=== PATIENT | female | born 1995 | race Caucasian/White ===

== ENCOUNTER 2024-09-03 20:59 | Emergency (ER) | payer OTHER, SELFPAY ==
[2024-09-03] VITALS (7 sets, daily range): BP systolic 113–136; BP diastolic 80; PULSE 86–107; RESP 20; TEMP 36.9; O2SAT 98–100
--- NOTE | 2024-09-03 21:30 | W.ED.GENAD ---
Discharge Plan Discharge Details Chief Complaint: Allergic Clinical Impression: Allergic reaction ED Provider: Ana Robbins Home Meds and New Rx's Prescriptions: No Action cetirizine [24Hour Allergy] 10 mg tablet 10 mg PO DAILY fluticasone propionate [24 Hour Allergy Relief] 50 mcg/actuation spray,suspension 2 spray intranasal DAILY Rx Instructions: administer into each nostril Mirena 21 mcg/24hr (up to 8 yrs) 52 mg intrauterine device 1 device intrauterine ONCE Rx Instructions: as a single dose Discharge Instructions Instructions: Allergic Reaction ED Additional Instructions: You were seen in the emergency department today for evaluation after an allergic reaction, likely to a food. In our department you had a full physical examination performed, and received medications for treatment of the hives that you developed. At this time, it is safe for you to go home and continue to use Benadryl as needed for any ongoing itching or hives. If you develop shortness of breath, throat swelling, or any other symptoms concerning for anaphylaxis she should give yourself your EpiPen and return to the emergency department immediately. You need to contact your primary care provider to discuss repeat allergy testing and follow-up. Please follow-up with your primary care provider in the next few days to discuss this visit and any symptoms that change, worsen, or persist. Thank you for allowing us to be part of your care. HPI General Mode of arrival: ambulatory. Date/Time Provider Initiated Documentation: 09/03/24 21:01. Limitations to Documentation: no limitations. Information obtained by: patient, family and old records reviewed. HPI Narrative: This is a 28-year-old female patient with a history of anaphylactic reaction to peanuts, sesame seeds, and tree nuts, presenting for evaluation of allergic reaction. The patient was out to dinner, had a few bites of her meal and then noticed some itchiness of her tongue and flushing of her face. She felt quite shaky, states that she never developed any throat swelling, shortness of breath. She tried to make herself throw up as that has helped to minimize reactions in the past. She states that she took 50 mg of Benadryl orally, did not use her EpiPen, and presented to care concerned for development of worsening reaction. The patient reports that she has not needed to use her EpiPen in some time, and has not had to come to the hospital for an allergic reaction in at least 5 to 10 years. She reports that right now her shakiness is improving as is her facial flushing. She has not developed any hives but did have some itching of her scalp. She has no abdominal pain or nausea, denies shortness of breath, wheezing, changes in voice or throat swelling. Prior to this event she was in her normal state of health. Related Data Home Medications ?Medication ?Instructions ?Recorded ?Confirmed cetirizine 10 mg tablet (24Hour 10 mg PO DAILY 09/03/24 09/03/24 Allergy) fluticasone propionate 50 2 spray intranasal DAILY 09/03/24 09/03/24 mcg/actuation nasal spray,suspension (24 Hour Allergy Relief) levonorgestrel 21 mcg/24 hr (up to 1 device intrauterine ONCE 09/03/24 09/03/24 8 years) 52 mg intrauterine device (Mirena) Allergies Allergy/AdvReac Type Severity Reaction Status Date / Time peanut Allergy Severe Anaphylaxis Verified 09/03/24 21:07 sesame seed Allergy Severe Anaphylaxis Verified 09/03/24 21:07 tree nut Allergy Severe Anaphylaxis Verified 09/03/24 21:07 latex Allergy Mild rash Verified 09/03/24 21:07 General Stated Complaint: Allergic TARA: 4 Exam Narrative Exam Narrative: Gen: Awake and alert, in no apparent distress HEENT: Non-icteric sclera, PERRL. No posterior pharynx erythema, edema, nor tongue swelling Neck: Supple, no stridor Lungs: No apparent respiratory distress, normal respiratory effort. Lung sounds clear and equal bilaterally without wheezing, rhonchi, rales CV: Appears well perfused, heart with regular rate and rhythm, strong distal pulses Abdomen: Non-distended, soft, nontender MSK: Moves 4 extremities without apparent limitation in ROM Skin: Visualized skin with mild facial flushing, no hives appreciated on initial examination. Neuro: Normal Gait, no obvious focal deficits or facial asymmetry. Speaks in full, clear sentences. Psych: Appropriate for situation. Course Vital Signs Vital signs: Vital Signs Temperature 36.9 C 09/03/24 21: Pulse 93 H 09/03/24 21:01 Respiratory Rate 20 09/03/24 21: Blood Pressure 136/80 09/03/24 21: Pulse Oximetry 98 09/03/24 21:01 Temperature 36.9 C 09/03/24 21:01 Temperature Source Oral 09/03/24 21:01 Pulse 98 H 09/03/24 21:14 Respiratory Rate 20 09/03/24 21:01 Blood Pressure 114/80 09/03/24 21:13 Blood Pressure Mean 91 09/03/24 21:13 Blood Pressure Position Sitting 09/03/24 21:01 Pulse Oximetry 100 09/03/24 21:14 Oxygen Delivery Method Room Air 09/03/24 21:01 Oxygen Flow Rate 0 09/03/24 21:01 Pain Level 0 09/03/24 21:01 Medical Decision Making This is a 28-year-old female patient presenting for evaluation of an allergic reaction. My differential includes but is not limited to allergy to food product, certainly considered anaphylaxis though the patient is reassuringly not meeting criteria for this at this time, though certainly the presence of vomiting increase my concern, though it was self-imposed. She has no hypotension to suggest shock. No evidence for angioedema on my physical examination. No wheezing to suggest reactive airway disease exacerbation. I had a extended shared decision-making conversation with the patient regarding next Epson treatment. I do not see an indication to proceed with epinephrine at this time. The patient might benefit from steroids and Pepcid to complete her allergic reaction medication regimen, and at this time would prefer to wait and monitor her symptoms here in the emergency department to ensure that they do not worsen. -I was summoned to bedside, patient has started to develop hives on her arms and her back. For this reason we elected to initiate an IV and provide her with 125 mg of Solu-Medrol and 20 mg of Pepcid. She remains without shortness of breath, nausea or vomiting, or throat swelling to warrant epinephrine administration. I [place] [facility] [place] [facility] [place] completion of her observation period. She already has EpiPen's at home which are not , understands how to use them and to return to care if she needs to do so. She will follow-up with her outpatient providers including her visual display manager. I anticipate after observation if she does not develop worsening symptoms that she will be safe for discharge to home with her family members. All further care per the [facility] provider. Ana Robbins MD Medical Records Medical records reviewed: Yes I reviewed the patient's medical records. Lab Data Lab results reviewed: Yes I reviewed the patient's lab results. PFSH All Active Problems (Updated 09/03/24 @ 22:24 by Ana Robbins MD) Allergic reaction (Acute) Social History Smoking/Tobacco Use Status: Never Smoking risk assessment performed?: Yes Alcohol Intake: current Alcohol Intake frequency: a few times a week Drug use: Never Substance use type: does not use Do you feel safe at home: Yes Do you feel safe in your relationship?: Yes PAWSS Have you Been Recently Intoxicated or Drunk Within the Last 30 days?: No Have you Ever Experienced Previous Episodes of Alcohol Withdrawal?: No Have you ever Experienced Withdrawal Seizures?: No Have you ever Experienced Delirium Tremens(DT)s?: No Have you ever undergone Alcohol Rehabilitation Treatment (i.e, inpt ot outpatient treatment programs)?: No Have you ever Experienced Blackouts?: No Have you ever Combined Alcohol with other Downers within the last 90 days?: No Have you ever Combined Alcohol with any other Substance of Abuse during the last 90 days?: No Positive Blood Alcohol level on Presentation? [PCS.BAL]: Unable to Obtain Evidence of Increased Autonomic Activity (i.e. HR>120, tremor, sweating, agitation, nausea)?: No Result: 0
[2024-09-03] MEDS: methylPREDNISolone SUCC 125 MG VIAL IVP (22:18)
[2024-09-03] MEDS: Famotidine 20 MG/2 ML VIAL IVP (22:18)
--- NOTE | 2024-09-03 22:42 | ED.PROG_ITS ---
Date of service: 09/03/24 Time of Service: 22:42 Medical Decision Making This patient was signed out to me. Please see previous notes for H&P and initial eval. In brief, 28yo F with food allergies presenting with hives after likely allergen exposure. Took 50mg benadyrl prior to arrival. No s/s to suggest anaphalyxis. Given solu-medrol and cetirizine here with improvement. Plan to observe in the ED until midnight; if remains well appearing with improved/improving symptoms and no GI or respiratory distress would discharge home. Has Epi-pens available at home and does not need refill at this time. Contingent discharge instructions have been written. Observed until midnight; on my assessment patient reports feeling well. Reassuring vital signs. No hives or other rash present. She has had no nasuea, vomiting, abdominal pain, shortness of breath, or throat swelling at any point including on my assessment. Appropriate for discharge home to followup with PCP. Strict return precautions and s/s anaphylaxis reviewed. Discharged home; discharge instructions and return precautions were reviewed with patient and support person at bedside who verbalized understanding. All questions were answered and they are in full agreement with the plan. Exam Narrative Exam Narrative: General: Alert, well appearing, well nourished, in no acute distress. Head: Normocephalic, atraumatic Neck: Trachea midline, ?Neck supple. Cardiac: ?RRR, no murmurs appreciated Resp: No respiratory distress. CTAB. Extremities: ?No deformities.? No peripheral edema. Neurologic: GCS 15. ? Moves all extremities freely against gravity Discharge Plan Disposition Patient Disposition: Home Condition: Good Discharge Details Clinical Impression: Allergic reaction [facility] Provider: Nichole Downs Home Meds and New Rx's Prescriptions: Continued cetirizine [24Hour Allergy] 10 mg tablet 10 mg PO DAILY fluticasone propionate [24 Hour Allergy Relief] 50 mcg/actuation spray,suspension 2 spray intranasal DAILY Rx Instructions: administer into each nostril Mirena 21 mcg/24hr (up to 8 yrs) 52 mg intrauterine device 1 device intrauterine ONCE Rx Instructions: as a single dose Discharge Instructions Instructions: Allergic Reaction ED Additional Instructions: You were seen in the emergency department today for evaluation after an allergic reaction, likely to a food. In our department you had a full physical examination performed, and received medications for treatment of the hives that you developed. At this time, it is safe for you to go home and continue to use Benadryl as needed for any ongoing itching or hives. If you develop shortness of breath, nausea/vomiting, throat swelling, or any other symptoms concerning for anaphylaxis you should give yourself your EpiPen and return to the emergency department immediately. You need to contact your primary care provider to discuss repeat allergy testing and follow-up. You can resume your normal activities today. Please follow-up with your primary care provider in the next few days to discuss this visit and any symptoms that change, worsen, or persist. Thank you for allowing us to be part of your care.
== END 2024-09-04 00:52 | disposition home or self-care (01) ==
PROVIDERS: Emergency Provider Student in an Organized Health Care Education/Training Program
DX: T78.40XA Allergy, unspecified, initial encounter (principal); Z91.018 Allergy to other foods; Z91.010 Allergy to peanuts; X58.XXXA Exposure to other specified factors, initial encounter
CPT/HCPCS: 00123; 96374; 96375; 99283; J2919